=== PATIENT | female | born 1955 | race African-American/Black ===

== ENCOUNTER 2018-09-17 22:44 | Emergency (ER) | payer MEDICAID ==
[~2018-09-17] VITALS: Ht 149.9 cm; Wt 57.0 kg
[~2018-09-17 22:44] MED LIST: ENAL10TA PO; LEVO75TA7 PO
[2018-09-17 23:49] LABS: BASOPHILS % 0.3 % (0.0-2.0); EOSINOPHILS % 0.7 % (0.0-5.0); HEMATOCRIT. 38.8 % (36.0-48.0); HEMOGLOBIN. 12.3 g/dL (12.0-16.0); MEAN CORPUSCULAR VOLUME 78.4 fL (81.0-99.0); MEAN PLATELET VOLUME 9.7 fl (7.4-10.4); MONOCYTES % 8.1 % (2.0-8.0); NEUTROPHILS % 43.9 % (40.0-76.0); PLATELET 216 x1000/uL (130-400); RED BLOOD CELL COUNT 4.94 mill/uL (4.2-5.4); RED CELL DISTRIBUTION WIDTH 14.2 % (11.6-14.6)
[2018-09-17 23:54] LABS: CHLORIDE 95 mEq/L (98-107)
[2018-09-18] MEDS ORDERED: INSULIN REGULAR (HUMULIN R) 300UNITS/3ML SUBCUT ONE (00:15)
[2018-09-18] MEDS ORDERED: SODIUM CHLORIDE 0.9% 1,000 ML IV ONE (00:15)
[2018-09-18] MEDS ORDERED: ONDANSETRON HCL 4MG/2ML INJ IV NR (01:00)
[2018-09-18] MEDS ORDERED: DIPHENHYDRAMINE 25MG CAPSULE PO NR (01:00)
[2018-09-18 02:08] VITALS: BP 151/89
== END 2018-09-18 02:13 | disposition home or self-care (01) ==
LOC: ER 23:10
DX: R07.89 Other chest pain (principal); E11.40 Type 2 diabetes mellitus with diabetic neuropathy, unspecified; E11.65 Type 2 diabetes mellitus with hyperglycemia; I10 Essential (primary) hypertension; E05.90 Thyrotoxicosis, unspecified without thyrotoxic crisis or storm; Z80.9 Family history of malignant neoplasm, unspecified
CPT/HCPCS: 36415; 71045; 80053; 82962; 83880; 84484; 85025; 93005; 96372; 96374; 99285; J1815; J2405; J7030; Q0163

== ENCOUNTER 2019-03-02 10:39 | Emergency (ER) | payer OTHER, MEDICARE, MEDICAID ==
[~2019-03-02] VITALS: Ht 152.4 cm; Wt 70.0 kg
[2019-03-02] MEDS ORDERED: ACETAMINOPHEN 325MG TABLET PO ONE (12:30)
[2019-03-02 13:04] LABS: CLARITY URINE CLOUDY (CLEAR); COLOR URINE YELLOW (YELLOW); KETONES URINE NEGATIVE (NEGATIVE); LEUKOCYTE ESTERASE URINE NEGATIVE (NEGATIVE); NITRITE URINE NEGATIVE (NEGATIVE); OCCULT BLOOD URINE NEGATIVE (NEGATIVE); PH URINE 5.5 (4.5-8.0); PROTEIN URINE NEGATIVE (NEGATIVE); SPECIFIC GRAVITY URINE 1.032 (1.005-1.030); UROBILINOGEN URINE 0.2 E.U./dL (0.2-1.0)
[2019-03-02 13:14] LABS: *AMPHETAMINES SCREEN URINE NEGATIVE (NEGATIVE)
[2019-03-02 13:15] LABS: *BENZODIAZEPINES SCREEN URINE NEGATIVE (NEGATIVE); *COCAINE SCREEN URINE NEGATIVE (NEGATIVE); CANNABINOID URINE SCREEN PRESUMTIVE POSITIVE (NEGATIVE); METHADONE URINE SCREEN NEGATIVE (NEGATIVE); OPIATES URINE SCREEN NEGATIVE (NEGATIVE); PHENCYCLIDINE URINE SCREEN NEGATIVE (NEGATIVE)
[2019-03-02 13:19] LABS: *BARBITURATES SCREEN URINE NEGATIVE (NEGATIVE)
[2019-03-02] MEDS ORDERED: IBUPROFEN 200MG TABLET PO ONE (16:15)
[2019-03-02 16:49] VITALS: BP 150/80
== END 2019-03-02 16:50 | disposition home or self-care (01) ==
LOC: ER 10:39
DX: M75.32 Calcific tendinitis of left shoulder (principal); M50.30 Other cervical disc degeneration, unspecified cervical region; F12.10 Cannabis abuse, uncomplicated; E11.9 Type 2 diabetes mellitus without complications; I10 Essential (primary) hypertension; E03.9 Hypothyroidism, unspecified; Z79.899 Other long term (current) drug therapy; V49.88XA Car occupant (driver) (passenger) injured in other specified transport accidents, initial encounter; Y93.89 Activity, other specified; Y92.89 Other specified places as the place of occurrence of the external cause; Y99.8 Other external cause status
CPT/HCPCS: 72040; 72100; 73030; 80305; 82962; 99284

== ENCOUNTER 2021-02-09 14:26 | Emergency (ER) | payer MEDICARE, MEDICAID ==
[~2021-02-09] VITALS: Ht 167.6 cm; Wt 66.0 kg
[~2021-02-09 14:26] MED LIST changes: -ENAL10TA PO; +ENAL10TA19 PO
[2021-02-09 16:06] LABS: CLARITY URINE CLEAR (CLEAR); COLOR URINE YELLOW (YELLOW); KETONES URINE TRACE (NEGATIVE); LEUKOCYTE ESTERASE URINE NEGATIVE (NEGATIVE); NITRITE URINE NEGATIVE (NEGATIVE); OCCULT BLOOD URINE NEGATIVE (NEGATIVE); PROTEIN URINE TRACE (NEGATIVE); SPECIFIC GRAVITY URINE 1.042 (1.005-1.030); UROBILINOGEN URINE 0.2 E.U./dL (0.2-1.0)
[2021-02-09] MEDS ORDERED: DIF15 MT (16:49)
[2021-02-09 16:56] VITALS: BP 140/90
== END 2021-02-09 16:58 | disposition home or self-care (01) ==
LOC: ER 14:51
DX: B37.3 Candidiasis of vulva and vagina (principal); N39.0 Urinary tract infection, site not specified; E11.65 Type 2 diabetes mellitus with hyperglycemia; I10 Essential (primary) hypertension; E03.9 Hypothyroidism, unspecified; F12.10 Cannabis abuse, uncomplicated
CPT/HCPCS: 81003; 82962; 99282

== ENCOUNTER 2024-07-16 19:04 | Emergency (ER) | payer BC, MEDICAID, OTHER ==
[~2024-07-16] VITALS: Ht 160 cm; Wt 54.0 kg
[~2024-07-16 19:04] MED LIST changes: +DIF15 MT; +ENAL-77 PO; -ENAL10TA19 PO
[2024-07-16 19:36] VITALS: BP 171/99; PULSE 94; RESP 16; O2SAT 99
[2024-07-17] MEDS ORDERED: ACET-2708 MT (00:27)
[2024-07-17 00:52] VITALS: TEMP 98.1
[2024-07-17] MEDS: ACETAMINOPHEN 325MG TABLET PO NR (00:52)
== END 2024-07-17 00:59 | disposition home or self-care (01) ==
LOC: ER 19:04
DX: S80.02XA Contusion of left knee, initial encounter (principal); E11.9 Type 2 diabetes mellitus without complications; I10 Essential (primary) hypertension; E03.9 Hypothyroidism, unspecified; F12.90 Cannabis use, unspecified, uncomplicated; W18.39XA Other fall on same level, initial encounter; Y93.89 Activity, other specified; Y92.89 Other specified places as the place of occurrence of the external cause; Y99.8 Other external cause status
CPT/HCPCS: 99283; 29505; 73562; L1830